=== PATIENT | male | born 1950 | race African-American/Black ===

== ENCOUNTER 2017-05-23 13:11 | Emergency (ER) | payer MEDICARE, OTHER ==
--- NOTE | 2017-05-23 14:20 | ER Document Report ---
ED Psych Disorder / Suicide - General Chief Complaint: Psych Problem Stated Complaint: PSYCH EVAL Time Seen by Provider: 05/23/17 14:14 Notes: Patient is a 66 year old male presenting to the emergency department with IVC paperwork. Patient was placed under IVC for being violent and throwing things in his facility of living. Patient state he is having difficulty making adjustments. Patient has not had a shower in about a month. Patient was brought in by a deputy court. Patient states he was having some problems so he was brought in. Patient states he kicked over a fan and was using profanity. Patient resides at [facility]. Patient states he is at [facility] because of EtOH and drugs. Patient denies any current pain. TRAVEL OUTSIDE OF THE [place] IN LAST 30 DAYS: No - Related Data Allergies/Adverse Reactions: aspirin [Aspirin] Allergy (Mild, Verified 05/23/17 13:16) Penicillins Allergy (Mild, Verified 05/23/17 13:16) Past Medical History - Social History Family History: DM - Past Medical History Cardiac Medical History: Reports: Hx Hypercholesterolemia, Hx Hypertension Denies: Hx Coronary Artery Disease, Hx Heart Attack Pulmonary Medical History: Reports: Hx Pneumonia - 5 YEARS AGO Denies: Hx Asthma, Hx COPD Neurological Medical History: Denies: Hx Cerebrovascular Accident, Hx Seizures Endocrine Medical History: Reports: Hx Diabetes Mellitus Type 2 Renal/ Medical History: Denies: Hx Peritoneal Dialysis Musculoskeltal Medical History: Denies Hx Arthritis Psychiatric Medical History: Reports: Hx Schizophrenia Past Surgical History: Reports: Hx Orthopedic Surgery - left foot. Denies: Hx Pacemaker - Immunizations Hx Diphtheria, Pertussis, Tetanus Vaccination: Yes Physical Exam - Vital signs Vitals: Temp Pulse Resp BP Pulse Ox 98.2 F 121 H 20 168/105 H 99 05/23/17 13:19 05/23/17 13:19 05/23/17 13:19 05/23/17 13:19 05/23/17 13:19 - Notes Notes: Mild tachycardia. Course - Vital Signs Vital signs: Temp Pulse Resp BP Pulse Ox 98.2 F 121 H 20 168/105 H 99 05/23/17 13:19 05/23/17 13:19 05/23/17 13:19 05/23/17 13:19 05/23/17 13:19 Scribe Documentation - Scribe Written by Scribe:: Mark Guillen 05/23/17 14:20 acting as scribe for :: Deena
--- NOTE | 2017-05-23 15:01 | ER Document Report ---
ED Psych Disorder / Suicide <BALTAZAR PIERRE - Last Filed: 05/23/17 17:44> - General Information source: Patient, Transfer Record TRAVEL OUTSIDE OF THE [place] IN LAST 30 DAYS: No <BRUCE MADRIGAL - Last Filed: 05/23/17 19:40> - General Chief Complaint: Psych Problem Stated Complaint: PSYCH EVAL Time Seen by Provider: 05/23/17 14:14 - HPI Notes: Patient states he is not suicidal or homicidal. Patient disclosed he can't make adjustments the way people feel he should. Patient disclosed he has been under a lot of pressure. Patient stated again he has no desire to hurt himself or others. Patient disclosed he saw something that upset up but would not elaborate. There is no family or friends. Patient states he has been living in a rest home for 15 years. Patient is alert and orientated to person, place and circumstance. Mood is euthymic however does demonstrate some agitation when talking about the "something" he witnessed. Patient denies suicidal and homicidal ideation. No current delusions are noted. Patient is not demonstrating any behaviour congruent with responding to internal stimuli. thought process is organized and linear. Thought content is guarded. Conversational speech is slightly pressured. attention and concentration are fair. intellectual abilities appear to be average range. eye contact is good. schizophrenia per history impression/plan: patient is recommended for rescind of IVC, patient does not meet IVC criteria per [place] GS 122C. Concerns for patent include not taking medication and aggression. Patient has not had any behavioral issues during [facility] ED visit. Patient appears to be having difficulties with his placement and wants a new arrangement. Patient is recommended to follow up with out patient mental health services to address reported history. Patient is currently not in an acute psychosis and is already engaged in a higher level of care with [facility]. Dr. Guy was consulted on the care and management of this patient; attending physician is in agreement with recommendations and disposition. (BALTAZAR PIERRE) Patient is a 66-year-old male who presents with the following RME complaint "Patient is a 66 year old male presenting to the emergency department with IVC paperwork. Patient was placed under IVC for being violent and throwing things in his facility of living. Patient state he is having difficulty making adjustments. Patient has not had a shower in about a month. Patient was brought in by a deputy sheriff k9 handler. Patient states he was having some problems so he was brought in. Patient states he kicked over a fan and was using profanity. Patient resides at [facility]. Patient states he is at [facility] because of EtOH and drugs. Patient denies any current pain." Patient will not give me any further history except reporting he is having problems with other residents that he is dealing with at his current facility, [facility]. He reports distant marijuana and alcohol use denies any current problems. He has refused to shave for the last 3 weeks he states because "some people just want it there way". History is otherwise as per IVC papers which show him as being aggressive and threatening including asking for a gun. Denies any active physical complaints at all. Does report a distant history of blood clot in his foot that required surgery. Denies diabetes but was fairly upset that a physician tried to treat him for this in the past. (BRUCE MADRIGAL) - Related Data Allergies/Adverse Reactions: aspirin [Aspirin] Allergy (Mild, Verified 05/23/17 13:16) Penicillins Allergy (Mild, Verified 05/23/17 13:16) Past Medical History - Social History Smoking Status: Former Smoker Chew tobacco use (# tins/day): No Frequency of alcohol use: None Drug Abuse: None Family History: Reviewed & Not Pertinent, DM - Past Medical History Cardiac Medical History: Reports: Hx Hypercholesterolemia, Hx Hypertension Denies: Hx Coronary Artery Disease, Hx Heart Attack Pulmonary Medical History: Reports: Hx Pneumonia - 5 YEARS AGO Denies: Hx Asthma, Hx COPD Neurological Medical History: Denies: Hx Cerebrovascular Accident, Hx Seizures Endocrine Medical History: Reports: Hx Diabetes Mellitus Type 2 Renal/ Medical History: Denies: Hx Peritoneal Dialysis Musculoskeltal Medical History: Denies Hx Arthritis Psychiatric Medical History: Reports: Hx Schizophrenia Past Surgical History: Reports: Hx Orthopedic Surgery - left foot. Denies: Hx Pacemaker - Immunizations Hx Diphtheria, Pertussis, Tetanus Vaccination: Yes <BRUCE MADRIGAL - Last Filed: 05/23/17 19:40> Review of Systems - Review of Systems -: Yes ROS unobtainable due to patient's medical condition - Refuses to give further answers. <BRUCE MADRIGAL - Last Filed: 05/23/17 19:40> Physical Exam <BALTAZAR PIERRE - Last Filed: 05/23/17 17:44> - Vital signs Interpretation: Hypertensive <BRUCE MADRIGAL - Last Filed: 05/23/17 19:40> - Vital signs Vitals: Temp Pulse Resp BP Pulse Ox 98.2 F 121 H 20 168/105 H 99 05/23/17 13:19 05/23/17 13:19 05/23/17 13:19 05/23/17 13:19 05/23/17 13:19 - Notes Notes: GENERAL: VS as per nursing doc. Well-appearing, well-nourished and in no acute distress. HEAD: Atraumatic, normocephalic EYES: Pupils equal round and reactive to light, extraocular movements intact, sclera anicteric, no conjunctival injection or discharge. ENT: Nares patent, oropharynx clear without exudates, moist mucous membranes. NECK: Normal range of motion, supple without lymphadenopathy. LUNGS: Breath sounds clear to auscultation bilaterally and equal. No wheezes rales or rhonchi. HEART: Regular rate and rhythm without murmurs. Peripheral pulses equal. ABDOMEN: Soft, non-tender. BACK: Normal to inspection EXTREMITIES: Normal appearance without edema. NEUROLOGICAL: Cranial nerves grossly intact. Normal speech. Normal sensory and motor exams. No gross cerebellar abnormalities. PSYCH: Oriented 3. Calm, directable. No evidence of hallucinations or delusions. No reported suicidal or homicidal ideation. Normal thought content. Good insight. Speech is appropriate. SKIN: Warm, dry. No lacerations. (KAITLIN,JOHN F) Course - Laboratory Result Diagrams: 05/23/17 15:16 05/23/17 15:16 <PIERREBALTAZAR - Last Filed: 05/23/17 17:44> - Laboratory Result Diagrams: 05/23/17 15:16 05/23/17 15:16 - EKG Interpretation by Ga Rate: Tachycardia - Rate 105. Left atrial enlargement noted. LVH with repolarization abnormalities. Nonspecific ST-T abnormalities otherwise noted. Impression abnormal <BRUCE MADRIGAL - Last Filed: 05/23/17 19:40> - Re-evaluation Re-evalutation: 05/23/17 19:39 Patient was seen by psychiatry. They did not feel he met commitment criteria. They are going to work on things as an outpatient. Patient reports no homicidal or suicidal ideation. (BRUCE MADRIGAL) - Vital Signs Vital signs: Temp Pulse Resp BP Pulse Ox 98.2 F 121 H 20 168/105 H 99 05/23/17 13:19 05/23/17 13:19 05/23/17 13:19 05/23/17 13:19 05/23/17 13:19 - Laboratory Laboratory results interpreted by me: 05/23/17 05/23/17 05/23/17 15:16 15:16 15:45 Hgb 12.4 L RDW 14.5 H Potassium 3.3 L BUN 43 H Creatinine 4.83 H Est GFR ( Amer) 15 L Est GFR (Non-Af Amer) 12 L Glucose 184 H AST 13 L Alkaline Phosphatase 161 H Total Protein 8.4 H Urine Protein 100 H Urine Glucose (UA) >=500 H Urine Blood SMALL H Salicylates < 1.0 L Acetaminophen < 10 L Discharge <BALTAZAR PIERRE - Last Filed: 05/23/17 17:44> <BRUCE MADRIGAL - Last Filed: 05/23/17 19:40> - Discharge Clinical Impression: behavorial event Condition: Stable Disposition: HOME, SELF-CARE Additional Instructions: AT ANY TIME, IF YOUR SYMPTOMS CHANGE SIGNIFICANTLY OR WORSEN OR YOU DEVELOP NEW SYMPTOMS, RETURN TO THE EMERGENCY DEPARTMENT IMMEDIATELY FOR RE-EVALUATION. OUR GOAL IS TO PROVIDE EXCELLENT MEDICAL CARE! WE HOPE THAT WE HAVE MET YOUR EXPECTATIONS DURING YOUR EMERGENCY DEPARTMENT VISIT AND THAT YOU FEEL YOU HAVE RECEIVED EXCELLENT CARE! Please follow up with your out patient mental health provider within 3-5 days.
[2017-05-23 15:33] LABS: ABSOLUTE BASOPHILS # (AUTO) 0.1 10^3/uL (0.0-0.2); ABSOLUTE EOSINOPHILS # (AUTO) 0.1 10^3/uL (0.0-0.6); ABSOLUTE LYMPHOCYTES (AUTO) 1.5 10^3/uL (0.5-4.7); ABSOLUTE MONOCYTES (AUTO) 0.5 10^3/uL (0.1-1.4); ABSOLUTE NEUT (AUTO) 4.2 10^3/uL (1.7-8.2); EOSINOPHILS % (AUTO) 1.1 % (0-6); HEMOGLOBIN 12.4 g/dL (13.5-17.0); HGB HCT DIFFERENCE -0.8; LYMPHOCYTES % (AUTO) 23.2 % (13-45); MEAN CORPUSCULAR HEMOGLOBIN 27.8 pg (27.0-33.4); MEAN CORPUSCULAR HGB CONC 32.7 g/dL (32.0-36.0); MEAN CORPUSCULAR VOLUME 85 fl (80-97); MONOCYTES % (AUTO) 8.1 % (3-13); RED BLOOD COUNT 4.47 10^6/uL (4.35-5.55); RED CELL DISTRIBUTION WIDTH 14.5 % (11.5-14.0); SEGMENTED NEUTROPHILS % (AUTO) 66.6 % (42-78); WHITE BLOOD COUNT 6.3 10^3/uL (4.0-10.5)
--- NOTE | 2017-05-23 15:35 | ER Document Report ---
ED Medical Screen (RME) - General TRAVEL OUTSIDE OF THE U.[place] IN LAST 30 DAYS: No <ASAD HUI - Last Filed: 05/23/17 15:36> <CARLOS HANNA - Last Filed: 05/23/17 21:21> - General Chief Complaint: Psych Problem Stated Complaint: PSYCH EVAL Time Seen by Provider: 05/23/17 14:14 Notes: Patient is a 66 year old male presenting to the emergency department with IVC paperwork. Patient was placed under IVC by Vickie Mcclain (director of [facility]) for being violent, threatening staff, using profanity, and throwing things in his facility of living. Patient states he is having difficulty making adjustments. Patient states has not had a shower in about a month. Patient was brought in to the ED by a sheriff. Patient states he was having some problems so he was brought in. Patient states he kicked over a fan, threw his walker, and was using profanity. Patient resides at [facility]. Patient states he is at [facility] because of EtOH and drugs. Patient is not currently using any drugs or EtOH. Patient denies any current pain. (ASAD HUI) - Related Data Allergies/Adverse Reactions: aspirin [Aspirin] Allergy (Mild, Verified 05/23/17 13:16) Penicillins Allergy (Mild, Verified 05/23/17 13:16) Past Medical History - Social History Chew tobacco use (# tins/day): No Frequency of alcohol use: None Drug Abuse: None - Past Medical History Cardiac Medical History: Reports: Hx Hypercholesterolemia, Hx Hypertension Denies: Hx Coronary Artery Disease, Hx Heart Attack Pulmonary Medical History: Reports: Hx Pneumonia - 5 YEARS AGO Denies: Hx Asthma, Hx COPD Neurological Medical History: Denies: Hx Cerebrovascular Accident, Hx Seizures Endocrine Medical History: Reports: Hx Diabetes Mellitus Type 2 Renal/ Medical History: Denies: Hx Peritoneal Dialysis Musculoskeltal Medical History: Denies Hx Arthritis Psychiatric Medical History: Reports: Hx Schizophrenia Past Surgical History: Reports: Hx Orthopedic Surgery - left foot. Denies: Hx Pacemaker - Immunizations Hx Diphtheria, Pertussis, Tetanus Vaccination: Yes <ASAD HUI - Last Filed: 05/23/17 15:36> Physical Exam <ASAD HUI - Last Filed: 05/23/17 15:36> <CARLOS HANNA - Last Filed: 05/23/17 21:21> - Vital signs Vitals: Temp Pulse Resp BP Pulse Ox 98.2 F 121 H 20 168/105 H 99 05/23/17 13:19 05/23/17 13:19 05/23/17 13:19 05/23/17 13:19 05/23/17 13:19 - Notes Notes: GENERAL: Alert, interacts well. No acute distress. LUNGS: Clear to auscultation bilaterally, no wheezes, rales, or rhonchi. No respiratory distress. HEART: Mild tachycardia. Regular rhythm. No murmurs, gallops, or rubs. (ASAD HUI) Course - Laboratory Result Diagrams: 05/23/17 15:16 05/23/17 15:16 <ASAD HUI - Last Filed: 05/23/17 15:36> - Laboratory Result Diagrams: 05/23/17 15:16 05/23/17 15:16 <CARLOS HANNA - Last Filed: 05/23/17 21:21> - Vital Signs Vital signs: Temp Pulse Resp BP Pulse Ox 98.2 F 121 H 20 168/105 H 99 05/23/17 13:19 05/23/17 13:19 05/23/17 13:19 05/23/17 13:19 05/23/17 13:19 - Laboratory Laboratory results interpreted by me: 05/23/17 05/23/17 05/23/17 15:16 15:16 15:45 Hgb 12.4 L RDW 14.5 H Potassium 3.3 L BUN 43 H Creatinine 4.83 H Est GFR ( Amer) 15 L Est GFR (Non-Af Amer) 12 L Glucose 184 H AST 13 L Alkaline Phosphatase 161 H Total Protein 8.4 H Urine Protein 100 H Urine Glucose (UA) >=500 H Urine Blood SMALL H Salicylates < 1.0 L Acetaminophen < 10 L Doctor's Discharge <ASAD HUI - Last Filed: 05/23/17 15:36> <CARLOS HANNA - Last Filed: 05/23/17 21:21> - Discharge Clinical Impression: behavorial event Condition: Stable Disposition: HOME, SELF-CARE Additional Instructions: AT ANY TIME, IF YOUR SYMPTOMS CHANGE SIGNIFICANTLY OR WORSEN OR YOU DEVELOP NEW SYMPTOMS, RETURN TO THE EMERGENCY DEPARTMENT IMMEDIATELY FOR RE-EVALUATION. OUR GOAL IS TO PROVIDE EXCELLENT MEDICAL CARE! WE HOPE THAT WE HAVE MET YOUR EXPECTATIONS DURING YOUR EMERGENCY DEPARTMENT VISIT AND THAT YOU FEEL YOU HAVE RECEIVED EXCELLENT CARE! Please follow up with your out patient mental health provider within 3-5 days. Scribe Documentation - Scribe Written by Mark:: Mark Guillen 05/23/17 15:34 acting as scribe for :: Deena <ASAD HUI - Last Filed: 05/23/17 15:36>
[2017-05-23 15:48] LABS: ALANINE AMINOTRANSFERASE 24 U/L (21-72); ALBUMIN 4.7 g/dL (3.5-5.0); ALKALINE PHOSPHATASE 161 U/L (38-126); ANION GAP 19 (5-19); ASPARTATE AMINO TRANSFERASE 13 U/L (17-59); BILIRUBIN,DIRECT 0.4 mg/dL (0.0-0.4); BILIRUBIN,TOTAL 0.4 mg/dL (0.2-1.3); BLOOD UREA NITROGEN 43 mg/dL (7-20); CARBON DIOXIDE 22 mmol/L (22-30); CHLORIDE 103 mmol/L (98-107); CREATININE RESULT 4.83 mg/dL (0.52-1.25); GLUCOSE 184 mg/dL (75-110); POTASSIUM 3.3 mmol/L (3.6-5.0); SODIUM 143.9 mmol/L (137-145); TOTAL PROTEIN 8.4 g/dL (6.3-8.2)
[2017-05-23 15:49] LABS: ALCOHOL < 10 mg/dL (NONE DETECTED)
[2017-05-23 16:35] LABS: APPEARANCE,URINE CLOUDY; BILIRUBIN,URINE NEGATIVE (NEGATIVE); GLUCOSE, URINE >=500 mg/dL (NEGATIVE); KETONES,URINE NEGATIVE (NEGATIVE); LEUKOCYTE ESTERASE,URINE NEGATIVE (NEGATIVE); NITRITE,URINE NEGATIVE (NEGATIVE); PROTEIN,URINE 100 mg/dL (NEGATIVE); URINE SPECIFIC GRAVITY 1.007; UROBILINOGEN,URINE NEGATIVE mg/dL (<2.0)
[2017-05-23 16:51] LABS: URINE BARBITURATES SCREEN NEGATIVE; URINE METHADONE SCREEN NEGATIVE; URINE OPIATES LOW NEGATIVE; URINE PHENCYCLIDINE SCREEN NEGATIVE
[2017-05-23 21:55] VITALS: BP 159/91
--- NOTE | 2017-05-25 13:49 | EKG REPORT ---
SEVERITY:- ABNORMAL ECG - SINUS TACHYCARDIA LEFT ATRIAL ABNORMALITY LVH WITH SECONDARY REPOLARIZATION ABNORMALITY ST DEPRESSION, CONSIDER ISCHEMIA, ANT-LAT LDS : Confirmed by: rBie Wetzel MD 25-May-2017 13:48:27
== END 2017-05-23 19:00 | disposition home or self-care (01) ==
LOC: ER 13:11
DX: F91.8 Other conduct disorders (principal); F20.9 Schizophrenia, unspecified; E78.00 Pure hypercholesterolemia, unspecified; I10 Essential (primary) hypertension; E11.9 Type 2 diabetes mellitus without complications; Z88.6 Allergy status to analgesic agent; Z88.0 Allergy status to penicillin
CPT/HCPCS: 36415; 80053; 80307; 81001; 85025; 93005; 93010; 99284

== ENCOUNTER 2017-09-15 21:32 | Inpatient (IN) | payer MEDICARE, MEDICAID ==
--- NOTE | 2017-09-15 23:07 | ER Document Report ---
ED General - General Chief Complaint: Psych Problem Stated Complaint: PSYCH EVAL Time Seen by Provider: 09/15/17 21:57 Cannot obtain history due to: Mentally challenged, Uncooperative Notes: Patient is a 67-year-old male with a known psychiatric history who presents on involuntary commitment paperwork from his facility apparently for refusing to take medications and being aggressive with staff. The patient himself does not provide any meaningful history, denies any acute complaints, states he does not know why he is here. TRAVEL OUTSIDE OF THE [place] IN LAST 30 DAYS: No - Related Data Allergies/Adverse Reactions: aspirin [Aspirin] Allergy (Mild, Verified 05/23/17 13:16) Penicillins Allergy (Mild, Verified 05/23/17 13:16) Past Medical History - General Information source: Patient Cannot obtain history due to: Mentally challenged, Uncooperative - Social History Smoking Status: Former Smoker Frequency of alcohol use: None Drug Abuse: None Lives with: Retirement Family History: Reviewed & Not Pertinent, DM - Past Medical History Cardiac Medical History: Reports: Hx Hypercholesterolemia, Hx Hypertension Denies: Hx Coronary Artery Disease, Hx Heart Attack Pulmonary Medical History: Reports: Hx Pneumonia - 5 YEARS AGO Denies: Hx Asthma, Hx COPD Neurological Medical History: Denies: Hx Cerebrovascular Accident, Hx Seizures Endocrine Medical History: Reports: Hx Diabetes Mellitus Type 2 Renal/ Medical History: Denies: Hx Peritoneal Dialysis Musculoskeltal Medical History: Denies Hx Arthritis Psychiatric Medical History: Reports: Hx Schizophrenia Past Surgical History: Reports: Hx Orthopedic Surgery - left foot. Denies: Hx Pacemaker - Immunizations Hx Diphtheria, Pertussis, Tetanus Vaccination: Yes Review of Systems - Review of Systems Notes: Constitutional: Negative for fever. HENT: Negative for sore throat. Eyes: Negative for visual changes. Cardiovascular: Negative for chest pain. Respiratory: Negative for shortness of breath. Gastrointestinal: Negative for abdominal pain, vomiting or diarrhea. Genitourinary: Negative for dysuria. Musculoskeletal: Negative for back pain. Skin: Negative for rash. Neurological: Negative for headaches, weakness or numbness. 10 point ROS negative except as marked above and in HPI. Physical Exam - Vital signs Vitals: Temp Pulse Resp BP Pulse Ox 98.5 F 108 H 17 176/92 H 99 09/15/17 21:57 09/15/17 21:57 09/15/17 21:57 09/15/17 21:57 09/15/17 21:57 Interpretation: Hypertensive Notes: PHYSICAL EXAMINATION: GENERAL: Well-appearing, well-nourished and in no acute distress. HEAD: Atraumatic, normocephalic. EYES: Pupils equal round and reactive to light, extraocular movements intact, sclera anicteric, conjunctiva are normal. ENT: nares patent, oropharynx clear without exudates. Moist mucous membranes. NECK: Normal range of motion, supple without lymphadenopathy LUNGS: Breath sounds clear to auscultation bilaterally and equal. No wheezes rales or rhonchi. HEART: Regular rate and rhythm without murmurs ABDOMEN: Soft, nontender, normoactive bowel sounds. No guarding, no rebound. No masses appreciated. EXTREMITIES: Normal range of motion, no pitting or edema. No cyanosis. NEUROLOGICAL: No focal neurological deficits. Moves all extremities spontaneously and on command. PSYCH: Poor eye contact, somewhat bizarre affect. Does not provide meaningful history SKIN: Warm, Dry, normal turgor, no rashes or lesions noted. Course - Re-evaluation Re-evalutation: 09/15/17 23:05 Patient presents on involuntary commitment paperwork apparently after demonstrating physical hostility and aggression towards members of staff at the facility where he resides. He is calm and cooperative here. He does not provide any meaningful history. When I asked him what is going on he states "the cat went with a dog, the chicken went with the duck, and my left me for a homosexual". I am uncertain of the contacts and under which the patient came to this emergency department although he does not appear to be an immediate threat to himself or others. However given IVC was filled out by individuals who witnessed the events, I will proceed with standard psychiatric screening laboratories and have psychiatry evaluate the patient in the morning. He denies any acute physical concerns and a medical screening exam is unremarkable. 09/16/17 03:01 Labs are unchanged from patient's best baseline showing chronic kidney disease. Otherwise unremarkable. He is cleared for psychiatric evaluation - Vital Signs Vital signs: Temp Pulse Resp BP Pulse Ox 98.5 F 108 H 17 176/92 H 99 09/15/17 21:57 09/15/17 21:57 09/15/17 21:57 09/15/17 21:57 09/15/17 21:57 - Laboratory Result Diagrams: 09/16/17 00:15 09/16/17 00:15 Laboratory results interpreted by me: 09/16/17 09/16/17 00:15 00:15 Hgb 12.8 L Hct 37.6 L RDW 14.3 H Potassium 3.5 L Carbon Dioxide 21 L BUN 46 H Creatinine 5.87 H Est GFR ( Amer) 12 L Est GFR (Non-Af Amer) 10 L Glucose 128 H Direct Bilirubin 0.7 H Alkaline Phosphatase 154 H Salicylates < 1.0 L Acetaminophen < 10 L Discharge - Discharge Clinical Impression: Agitation, Refusal of medication Condition: Fair Disposition: PSYCH HOSP/UNIT
[2017-09-16 00:34] LABS: ABSOLUTE BASOPHILS # (AUTO) 0.1 10^3/uL (0.0-0.2); ABSOLUTE LYMPHOCYTES (AUTO) 1.8 10^3/uL (0.5-4.7); ABSOLUTE MONOCYTES (AUTO) 0.8 10^3/uL (0.1-1.4); ABSOLUTE NEUT (AUTO) 5.6 10^3/uL (1.7-8.2); BASOPHILS % (AUTO) 1.1 % (0-2); EOSINOPHILS % (AUTO) 0.4 % (0-6); HEMATOCRIT 37.6 % (37.9-51.0); HEMOGLOBIN 12.8 g/dL (13.5-17.0); HGB HCT DIFFERENCE 0.8; LYMPHOCYTES % (AUTO) 21.4 % (13-45); MEAN CORPUSCULAR HEMOGLOBIN 28.3 pg (27.0-33.4); MEAN CORPUSCULAR HGB CONC 34.1 g/dL (32.0-36.0); MEAN CORPUSCULAR VOLUME 83 fl (80-97); MONOCYTES % (AUTO) 9.5 % (3-13); RED BLOOD COUNT 4.54 10^6/uL (4.35-5.55); RED CELL DISTRIBUTION WIDTH 14.3 % (11.5-14.0); SEGMENTED NEUTROPHILS % (AUTO) 67.6 % (42-78); WHITE BLOOD COUNT 8.3 10^3/uL (4.0-10.5)
[2017-09-16 00:44] LABS: ALANINE AMINOTRANSFERASE 37 U/L (21-72); ALBUMIN 4.1 g/dL (3.5-5.0); ALKALINE PHOSPHATASE 154 U/L (38-126); ANION GAP 15 (5-19); ASPARTATE AMINO TRANSFERASE 51 U/L (17-59); BILIRUBIN,DIRECT 0.7 mg/dL (0.0-0.4); BILIRUBIN,TOTAL 0.7 mg/dL (0.2-1.3); BLOOD UREA NITROGEN 46 mg/dL (7-20); CALCIUM 8.8 mg/dL (8.4-10.2); CARBON DIOXIDE 21 mmol/L (22-30); CHLORIDE 107 mmol/L (98-107); CREATININE RESULT 5.87 mg/dL (0.52-1.25); GLUCOSE 128 mg/dL (75-110); POTASSIUM 3.5 mmol/L (3.6-5.0); SODIUM 143.2 mmol/L (137-145); TOTAL PROTEIN 7.2 g/dL (6.3-8.2)
[2017-09-16 00:46] LABS: ALCOHOL < 10 mg/dL (NONE DETECTED)
--- NOTE | 2017-09-16 08:08 | PSYCHOLOGICAL NOTE ---
Psych Note - Psych Note Psych Note: Patient is a 67-year-old male who presented last night via [facility] 's department under an involuntary commitment petition. Patient is a resident at [facility] who petitioned the involuntary commitment due to allegedly aggressive outbursts. The person who signed the petition listed herself as a med tech. Patient has a known diagnosis history of schizophrenia. Patient today is laying on his bed and does not make eye contact. Patient is mostly disorganized with his thoughts; however, there is a common theme with each of his answers in stories which is he has been upset because he cannot swallow the food. Patient states this has been going on for about a month. Patient does deny wanting to by suicide and denies wanting to harm others. Discussion with patient was otherwise limited and he is considered a poor historian at this time. No med recs or other information accompanied the patient last night from the facility. Note, patient was seen May 23, 2017 for a similar episode/etiology. [facility], [phone]: called x2, no answering service/unable to leave message. Third call, spoke with Gilda Mcqueen Gimp Tacker states patient has been a resident since December 18, 2001. Patient is his own guardian. Employee states the patient has been having similar episodes of outbursts throughout his stay. Patient has denied that he is diabetic his entire residence (employee has worked there for 10 years). She states for several months the patient has refused all medications, to include medical and psychiatric and to also see his psychiatrist. Worker states his sister had to come to take him to the doctor the other day. He typically refuses baths, etc. She states the State has visited, as well as APS and there is no place for him to go because he refuses his Diabetes medications. She states for the past few days, patient has been acting out aggressively, to include kicking items over, cursing, and then yesterday at breakfast and lunch began throwing cups of water at staff. Yesterday afternoon, he reportedly threw a table. She states the patient refuses help with ADL's, but then states no one helps him. Employee states that the patient cannot come back until he agreed to take his medications and be compliant. She states there policy is that if a resident was aggressive towards others, he can be refused. Discussed with employee that the patient is his own guardian, and has the right to refuse his medications. Worker states she is most concerned with the diabetes due to patient complaining of diminished eye sight. She states because she has been there for 10 years, the patient generally comes directly to her and has not complained about inability to swallow. She denies that the patient has been assessed by neurology for dementia related concerns. Patient was alert and oriented to name, location and year. Mood was euthymic with normal affect. Patient denies suicidal/homicidal ideations, intent, plan, means. Patient denies A/VH. Thought processes were disorganized. Conversational speech was disorganized. Intellectual abilities were estimated within the lower functioning range. Attention and focus are poor. Insight, judgment, impulse control are poor. 298.9 (F 29) unspecified schizophrenia spectrum and other psychotic disorder Diabetes Patient is recommended to continue under involuntary commitment for further observation and stabilization. I consulted with Dr. Guy in regards to the care management of this patient. EDMD is in agreement with disposition and recommendations.
--- NOTE | 2017-09-16 09:56 | ER Document Report ---
Doctor's Note Notes: 09/16/17 09:55 Rounds: Chart reviewed and patient interviewed. Patient resides at [facility]. He is been refusing to take his medications. His behavior became aggressive. He says that he is living there for 15 years and has issues causing him to act out now. Vital signs are essentially normal. Heart rate 101. Lab studies show some renal insufficiency which appears to be chronic. Patient appears to be medically stable for transfer or discharge. Alexandra Fernandez MD
[2017-09-16] MEDS ORDERED: CLONIDINE 0.1 MG/24 HR PATCH.TDWK TD ONE (10:13)
[2017-09-16] MEDS ORDERED: DIVALPROEX SODIUM 125 MG CAP.SPRINK PO SCH (10:15)
[2017-09-16] MEDS ORDERED: DIVALPROEX SODIUM 125 MG CAP.SPRINK PO ONE ×2 (11:00→12:00)
[2017-09-16] MEDS ORDERED: LORAZEPAM INJ 2 MG/1 ML VIAL IM ONE ×2 (11:56→13:00)
[2017-09-16] MEDS ORDERED: LORAZEPAM INJ 2 MG/1 ML VIAL IM SCH (12:00)
--- NOTE | 2017-09-16 15:33 | EKG REPORT ---
SEVERITY:- ABNORMAL ECG - SINUS TACHYCARDIA VENTRICULAR PREMATURE COMPLEX LEFT ATRIAL ABNORMALITY PROBABLE LVH WITH SECONDARY REPOL ABNRM ANTERIOR Q WAVES, POSSIBLY DUE TO LVH VS ANTERIOR SD AGE INDETERMINATE : Confirmed by: Shukri Bragg 16-Sep-2017 15:32:32
[2017-09-16] MEDS: DIVALPROEX SODIUM 125 MG CAP.SPRINK PO SCH (22:49)
[2017-09-16] MEDS: LORAZEPAM INJ 2 MG/1 ML VIAL IM SCH (22:49)
--- NOTE | 2017-09-17 10:12 | ER Document Report ---
Doctor's Note Notes: Patient is 67 year old male presenting to the emergency department via [facility] Department for aggressive behavior. Patient currently resides at [facility] where he was becoming aggressive. At bedside patient states that he expects people to already know things. Patient states that for the past week if felt like something was "bothering him" in his throat. He states that he continues to choke on his food. Patient states that he would like a shower and a shave. GENERAL: Alert, interacts well. No acute distress. HEAD: Normocephalic, atraumatic. EYES: Pupils equal, round, and reactive to light. Extraocular movements intact. ENT: Oral mucosa moist, tongue midline. ] NECK: Full range of motion. Supple. Trachea midline. LUNGS: Clear to auscultation bilaterally, no wheezes, rales, or rhonchi. No respiratory distress. HEART: Regular rate and rhythm. No murmurs, gallops, or rubs. ABDOMEN: Soft, non-tender. Non-distended. Bowel sounds present in all 4 quadrants. EXTREMITIES: Moves all 4 extremities spontaneously. NEUROLOGICAL: Alert and oriented x3. Normal speech. PSYCH: Normal affect, normal mood. SKIN: Warm, dry, normal turgor. No rashes or lesions noted. 09/17/17 15:48 (SELINA YUAN) 09/17/17 19:44 No evidence of difficulty swallowing, partially eaten breakfast tray by the bedside, no difficulty handling his secretions. nutrition services assistant consult has been made as there is some difficulty with [facility] getting them to agree to allow this patient to return. Continues to be medically stable. ( CARLOS HANNA)
[2017-09-17] MEDS: DIVALPROEX SODIUM 125 MG CAP.SPRINK PO SCH ×2 (11:10→23:30)
[2017-09-17] MEDS: LORAZEPAM INJ 2 MG/1 ML VIAL IM SCH ×2 (11:15→23:30)
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
--- NOTE | 2017-09-18 10:15 | PSYCHOLOGICAL NOTE ---
Psych Note - Psych Note Psych Note: Conducted check in with patient is a 67-year-old male who presented last night via [facility]'s department under an involuntary commitment petition. Patient is a resident at [facility] who petitioned the involuntary commitment due to allegedly aggressive outbursts. Patient today appears calm and stated "feel some better." He then stated to clinician that he needed a shave. Chart review conducted; patient is noted to have refused his evening medications because his Depakote sprinkles were put in ice cream. Patient asked attending nurse why he was receiving ice cream in the middle of the evening and then refused to take his medicine. Patient was alert and oriented to name, location and year. Mood was euthymic with normal affect. Patient denies suicidal/homicidal ideations, intent, plan, means. Patient denies A/VH. Thought processes were disorganized. Conversational speech was disorganized. Intellectual abilities were estimated within the lower functioning range. Attention and focus are poor. Insight, judgment, impulse control are poor. 298.9 (F 29) unspecified schizophrenia spectrum and other psychotic disorder Diabetes Patient is recommended to continue under involuntary commitment for further observation and stabilization. Patient is unable to return to his assisted living home and less he is taking p.o. medications as prescribed. Patient is currently refusing medications and any attempt to provide his medications and food. I consulted with Dr. Guy in regards to the care management of this patient. EDOH is in agreement with disposition and recommendations.
[2017-09-18] MEDS: LORAZEPAM INJ 2 MG/1 ML VIAL IM SCH (10:41)
[2017-09-18] MEDS: DIVALPROEX SODIUM 125 MG CAP.SPRINK PO SCH (10:43)
[2017-09-18] MEDS ORDERED: NORMAL SALINE 1000 ML 1,000 ML IV ONE (10:53)
[2017-09-18] MEDS ORDERED: CLONIDINE 0.2 MG/24 HR PATCH.TDWK TD SCH (11:00)
--- NOTE | 2017-09-18 11:08 | ER Document Report ---
Doctor's Note Notes: 09/18/17 11:06 67-year-old male who came to the [facility] with some increased agitation. Labs as recorded. It appears that the provider did think that this was a chronic condition. Patient did have a creatinine 4 months ago that was elevated in the fours. Previous creatinine prior to that was 2. I have called the [facility] facility and they have no record of any recent creatinines. BUN keeps increasing. Potassium is stable. I am concerned that the patient is having acute renal failure. I have tried to call all the patient's providers including the primary care physician Dr. Vivar. Patient is under IVC. Patient is refusing medications which I am concerned is contributing to his acute renal failure. I have added a urine sodium and will provide fluids. Psychiatry has been consulted on the patient and is attempting to have the patient take some liquid Depakote. I believe that the patient requires admission with gentle hydration even if it is against his wishes given that he is a danger to himself at this time.
[2017-09-18 12:24] LABS: ANION GAP 17 (5-19); BLOOD UREA NITROGEN 58 mg/dL (7-20); CALCIUM 8.6 mg/dL (8.4-10.2); CARBON DIOXIDE 23 mmol/L (22-30); CHLORIDE 105 mmol/L (98-107); CREATININE RESULT 6.25 mg/dL (0.52-1.25); GLUCOSE 161 mg/dL (75-110); POTASSIUM 3.2 mmol/L (3.6-5.0); SODIUM 145.1 mmol/L (137-145)
[2017-09-18] MEDS ORDERED: NORMAL SALINE 1000 ML 1,000 ML IV PRN (13:20)
[2017-09-18] MEDS ORDERED: ACETAMINOPHEN 325 MG TABLET PO PRN (13:20)
[2017-09-18] MEDS ORDERED: HALOPERIDOL LACTATE INJ 5 MG/1 ML VIAL IV PRN ×2 (13:37→15:18)
[2017-09-18] MEDS ORDERED: HALOPERIDOL LACTATE INJ 5 MG/1 ML VIAL IV ONE ×2 (14:30→16:00)
[2017-09-18 14:34] LABS: APPEARANCE,URINE SLIGHTLY-CLOUDY; BILIRUBIN,URINE NEGATIVE (NEGATIVE); GLUCOSE, URINE >=500 mg/dL (NEGATIVE); KETONES,URINE NEGATIVE (NEGATIVE); LEUKOCYTE ESTERASE,URINE NEGATIVE (NEGATIVE); NITRITE,URINE NEGATIVE (NEGATIVE); PROTEIN,URINE >=500 mg/dL (NEGATIVE); URINE SPECIFIC GRAVITY 1.011; UROBILINOGEN,URINE NEGATIVE mg/dL (<2.0)
--- NOTE | 2017-09-18 15:20 | PDOC H&P ---
History of Present Illness Admission Date/PCP: 09/18/17 11:31 Patient complains of: Agrressive behavior History of Present Illness: JYOTSNA CAMACHO is a 67 year old male presented with complaint of aggressive behavior toward staff. Pt was found to have a cr 5.87. ER called for admission for medical evaluation. Pt states that he is fine. Pt states that he is trying to go home. Pt states that he does not want us to do anything for him. Past Medical History Cardiac Medical History: Reports: Hyperlipidema, Hypertension Denies: Coronary Artery Disease, Myocardial Infarction Pulmonary Medical History: Reports: Pneumonia - 5 YEARS AGO Denies: Asthma, Chronic Obstructive Pulmonary Disease (COPD) Neurological Medical History: Denies: Seizures Endocrine Medical History: Reports: Diabetes Mellitus Type 2 Musculoskeltal Medical History: Denies: Arthritis Hematology: Denies: Anemia Past Surgical History Past Surgical History: Reports: Orthopedic Surgery - left foot Denies: Pacemaker Social History [facility] with: [facility] Smoking Status: Former Smoker Cigarettes Packs Per Day: 1 Cigars Per Day: 0 Pipes Per Day: 0 Number of Years Smokin Last Time Smoked: 11/03/2011 Frequency of Alcohol Use: None Hx Recreational Drug Use: No Hx Prescription Drug Abuse: No Family History Family History: Reviewed & Not Pertinent, DM Parental Family History Reviewed: Yes Children Family History Reviewed: Yes Sibling(s) Family History Reviewed.: Yes Medication/Allergy Home Medications: Acetaminophen [Acetaminophen Extra Strength] 500 mg PO Q8HP PRN 09/16/17 Amlodipine Besylate 5 mg PO DAILY 09/16/17 Atenolol/Chlorthalidone [Atenolol-Chlorthalidone 100-25] 1 tab PO DAILY Bismuth Subsalicylate [[place] Bismuth] 30 ml PO Q4HP PRN 09/16/17 Glipizide [Glipizide ER] 10 mg PO BID 09/16/17 Haloperidol 20 mg PO QHS 09/16/17 Losartan Potassium 100 mg PO DAILY 09/16/17 Mag Hydrox/Aluminum Hyd/Simeth [Antacid Anti-Gas Liquid] 15 ml PO Q4HP PRN 09/16 Simvastatin 10 mg PO QPM 09/16/17 Allergies/Adverse Reactions: aspirin [Aspirin] Allergy (Mild, Verified 09/18/17 13:06) Penicillins Allergy (Mild, Verified 09/18/17 13:06) Carbapenems Allergy (Verified 09/18/17 14:50) Cephalosporins Allergy (Verified 09/18/17 14:46) Review of Systems ROS unobtainable: Due to mental status Physical Exam Vital Signs: Temp Pulse Resp BP Pulse Ox 98.9 F 104 H 18 139/78 H 100 09/18/17 12:10 09/18/17 12:10 09/18/17 12:10 09/18/17 12:10 09/18/17 12:10 Intake & Output 09/17/17 09/18/17 09/19/17 06:59 06:59 06:59 Weight 62.1 kg General appearance: PRESENT: no acute distress, thin Head exam: PRESENT: atraumatic, normocephalic Eye exam: PRESENT: conjunctiva pink, EOMI, PERRLA. ABSENT: scleral icterus Ear exam: PRESENT: normal external ear exam Mouth exam: PRESENT: moist, tongue midline Neck exam: ABSENT: carotid bruit, JVD, lymphadenopathy, thyromegaly Respiratory exam: PRESENT: clear to auscultation dane. ABSENT: rales, rhonchi, wheezes Cardiovascular exam: PRESENT: RRR. ABSENT: diastolic murmur, rubs, systolic murmur Pulses: PRESENT: normal dorsalis pedis pul Vascular exam: PRESENT: normal capillary refill GI/Abdominal exam: PRESENT: normal bowel sounds, soft. ABSENT: distended, guarding, mass, organolmegaly, rebound, tenderness Rectal exam: PRESENT: deferred Extremities exam: PRESENT: full ROM. ABSENT: calf tenderness, clubbing, pedal edema Neurological exam: PRESENT: alert, awake, oriented to person, CN II-XII grossly intact Psychiatric exam: PRESENT: unusual affect Skin exam: PRESENT: dry, intact, warm. ABSENT: cyanosis, rash Results Laboratory Results: 09/18/17 11:36 09/18/17 09/18/17 11:36 14:05 Sodium 145.1 H Potassium 3.2 L Chloride 105 Carbon Dioxide 23 Anion Gap 17 BUN 58 H Creatinine 6.25 H Est GFR ( Amer) 11 L Est GFR (Non-Af Amer) 9 L Glucose 161 H Calcium 8.6 Urine Color YELLOW Urine Appearance SLIGHTLY-CLOUDY Urine pH 5.0 Ur Specific [place] 1.011 Urine Protein >=500 H Urine Glucose (UA) >=500 H Urine Ketones NEGATIVE Urine Blood MODERATE H Urine Nitrite NEGATIVE Ur Leukocyte Esterase NEGATIVE Urine WBC (Auto) 1 Urine RBC (Auto) 6 Assessment & Plan - Diagnosis (1) Schizophrenia Is this a current diagnosis for this admission?: Yes Plan: Will continue Depakote. Will add PRN Haldol. (2) Acute renal failure Qualifiers: Acute renal failure type: unspecified Qualified Code(s): N17.9 - Acute kidney failure, unspecified Is this a current diagnosis for this admission?: Yes Plan: In setting of CKD 2/3: Will check Renal u/s, UA with culture, bladder scan, and order to have navarrete placed if greater than 250 cc in bladder. (3) Moderate protein-calorie malnutrition Is this a current diagnosis for this admission?: Yes Plan: Will place on Renal diet and Nephro supplemental drink. (4) Hypernatremia Is this a current diagnosis for this admission?: Yes Plan: Will place on D51/2 NS. (5) Dehydration Is this a current diagnosis for this admission?: Yes Plan: Will place on IVF. Will check labs in am (6) Hypokalemia Is this a current diagnosis for this admission?: Yes Plan: Will check Potassium in am. Will give IVFs. (7) Metabolic acidosis Is this a current diagnosis for this admission?: Yes Plan: Secondary to Renal disease: Will continue IVFs. (8) DVT prophylaxis Is this a current diagnosis for this admission?: Yes Plan: SCDs - Time Time Spent: 30 to 50 Minutes Anticipated discharge: Other
[2017-09-18] MEDS ORDERED: DEXTROSE 50%-WATER 25 GM/50 ML DISP.SYRIN IV PRN ×2 (15:25)
[2017-09-18] MEDS ORDERED: GLUCAGON,HUMAN RECOMB 1 MG INJ IM PRN (15:25)
[2017-09-18] MEDS ORDERED: DEXTROSE 40% GEL 15 GM TUBE PO PRN ×2 (15:25)
[2017-09-18] MEDS ORDERED: INSULIN REG, HUMAN 100 UNIT/ML 3 ML VIAL (PYX) SUBCUT PRN (15:25)
[2017-09-18] MEDS ORDERED: LORAZEPAM INJ 2 MG/1 ML VIAL ONE ×2 (17:00→17:46)
[2017-09-18] MEDS ORDERED: LORAZEPAM INJ 2 MG/1 ML VIAL IV ONE (17:00)
[2017-09-18] MEDS: VALPROATE SODIUM SYRUP 250 MG/5 ML UDCUP PO SCH (17:38)
[2017-09-18] MEDS: DEXTROSE 5%-1/2 NORMAL SALINE 1,000 ML IV PRN (17:44)
--- NOTE | 2017-09-18 22:33 | RADIOLOGY REPORT (SQ) ---
EXAM DESCRIPTION: U/S RETROPERITON (RENAL/AORTA) COMPLETED DATE/TIME: 09/18/2017 10:16 pm REASON FOR STUDY: Acute Renal injury COMPARISON: None. TECHNIQUE: Dynamic and static grayscale images acquired of the kidneys and bladder and recorded on P ACS. Additional selected color Doppler and spectral images recorded. LIMITATIONS: None. FINDINGS: RIGHT KIDNEY: Normal size. Normal echogenicity. 2.6 cm cyst. No solid or suspicious mass es. No hydronephrosis. No calcifications. LEFT KIDNEY: Normal size. Normal echogenicity. 4.3 cm cyst. No solid or suspicious masses. No hydr onephrosis. No calcifications. BLADDER: Empty. Catheter in place. OTHER FINDINGS: No other significant finding. IMPRESSION: BILATERAL RENAL CYSTS. NO HYDRONEPHROSIS. TECHNICAL DOCUMENTATION: JOB ID: [id number] [employer]- All Rights Reserved
[2017-09-19] MEDS ORDERED: LORAZEPAM INJ 2 MG/1 ML VIAL IV ONE (09:46)
[2017-09-19 10:24] LABS: ANION GAP 15 (5-19); BLOOD UREA NITROGEN 53 mg/dL (7-20); CALCIUM 8.3 mg/dL (8.4-10.2); CARBON DIOXIDE 19 mmol/L (22-30); CHLORIDE 107 mmol/L (98-107); CREATININE RESULT 6.19 mg/dL (0.52-1.25); GLUCOSE 218 mg/dL (75-110); POTASSIUM 3.1 mmol/L (3.6-5.0); SODIUM 140.8 mmol/L (137-145)
[2017-09-19] MEDS: VALPROATE SODIUM SYRUP 250 MG/5 ML UDCUP PO SCH ×2 (11:19→16:40)
[2017-09-19] MEDS: MEGESTROL ACETATE 20 MG TABLET PO SCH (11:20)
--- NOTE | 2017-09-19 16:24 | PSYCHOLOGICAL NOTE ---
Psych Note - Psych Note Psych Note: Conducted check in with patient is a 67-year-old male who presented last night via [facility]'s department under an involuntary commitment petition. Patient is a resident at [facility] who petitioned the involuntary commitment due to allegedly aggressive outbursts. Patient today appears calm and stated "feel some better." He then stated to clinician that he needed a shave. Clinician spoke with attending nurse. Patient has been taking medication both in pill form and Depakene patient did attempt to refuse however attending physician ordered Ativan and once that took effect patient took medication. Patient has started eating. 298.9 (F 29) unspecified schizophrenia spectrum and other psychotic disorder Diabetes Patient is recommended to continue under involuntary commitment for further observation and stabilization. Patient is unable to return to his assisted living home and less he is taking p.o. medications as prescribed. Patient is demonstrating some improvement he has started eating and after some convincing does start to take medications. Patient is still receiving medications in multiple forms other than p.o. Patient will be reevaluated. I consulted with Dr. Guy in regards to the care management of this patient. EDTX is in agreement with disposition and recommendations.
--- NOTE | 2017-09-19 16:28 | PDOC PROGRESS REPORT ---
Subjective Progress Note for:: 09/19/17 Subjective:: Nursing states pt has allowed staff to carry out treatment care plans. Nursing states that pt took medication. Nursing yesterday reported that pt had 400 cc in bladder. Pt agreed to navarrete placement later. Physical Exam Vital Signs: Temp Pulse Resp BP Pulse Ox 99.2 F 100 17 138/82 H 100 09/18/17 21:00 09/18/17 21:00 09/18/17 21:00 09/18/17 21:00 09/18/17 21:00 General appearance: PRESENT: no acute distress, thin Head exam: PRESENT: atraumatic Eye exam: PRESENT: conjunctiva pink, EOMI, PERRLA. ABSENT: scleral icterus Ear exam: PRESENT: normal external ear exam Mouth exam: PRESENT: moist, tongue midline Neck exam: ABSENT: carotid bruit, JVD, lymphadenopathy, thyromegaly Respiratory exam: PRESENT: clear to auscultation dane. ABSENT: rales, rhonchi, wheezes Cardiovascular exam: PRESENT: RRR. ABSENT: diastolic murmur, rubs, systolic murmur Pulses: PRESENT: normal dorsalis pedis pul Vascular exam: PRESENT: normal capillary refill GI/Abdominal exam: PRESENT: normal bowel sounds, soft. ABSENT: distended, guarding, mass, organolmegaly, rebound, tenderness Rectal exam: PRESENT: deferred Extremities exam: PRESENT: full ROM. ABSENT: calf tenderness, clubbing, pedal edema Neurological exam: PRESENT: other - sleeping Psychiatric exam: PRESENT: other - sleeping Skin exam: PRESENT: dry, intact, warm. ABSENT: cyanosis, rash Results Impressions: Renal Ultrasound 09/18/17 00:00 IMPRESSION: BILATERAL RENAL CYSTS. NO HYDRONEPHROSIS. Assessment & Plan - Diagnosis (1) Schizophrenia Is this a current diagnosis for this admission?: Yes Plan: Will continue Depakote. Will add PRN Haldol with ativan. (2) Acute renal failure Qualifiers: Acute renal failure type: unspecified Qualified Code(s): N17.9 - Acute kidney failure, unspecified Is this a current diagnosis for this admission?: Yes Plan: In setting of CKD 2/3: Pt noted to have elevated Protein. Renal u/s demonstrated bilateral renal cyst. Urine culture urine culture demonstrating no growth. (3) Moderate protein-calorie malnutrition Is this a current diagnosis for this admission?: Yes Plan: Renal diet and Nephro supplemental drink. (4) Hypernatremia Is this a current diagnosis for this admission?: Yes Plan: Will continue IVF (5) Dehydration Is this a current diagnosis for this admission?: Yes Plan: Resolved. (6) Hypokalemia Is this a current diagnosis for this admission?: Yes Plan: Will check Potassium in am. Will continue IVFs. (7) Metabolic acidosis Is this a current diagnosis for this admission?: Yes Plan: Secondary to Renal disease: Will continue IVFs. (8) DVT prophylaxis Is this a current diagnosis for this admission?: Yes Plan: SCDs - Time Time Spent with patient: 15-24 minutes
[2017-09-19] MEDS: CLINDAMYCIN 600 MG/D5W RTU 600 MG/50 ML RTUPB IV SCH (21:24)
[2017-09-19] MEDS: DEXTROSE 5%-1/2 NORMAL SALINE 1,000 ML IV PRN (21:25)
[2017-09-20 05:12] LABS: ABSOLUTE EOSINOPHILS # (AUTO) 0.1 10^3/uL (0.0-0.6); ABSOLUTE MONOCYTES (AUTO) 0.6 10^3/uL (0.1-1.4); BASOPHILS % (AUTO) 0.4 % (0-2); EOSINOPHILS % (AUTO) 1.1 % (0-6); HEMATOCRIT 33.6 % (37.9-51.0); HEMOGLOBIN 11.2 g/dL (13.5-17.0); LYMPHOCYTES % (AUTO) 12.8 % (13-45); MEAN CORPUSCULAR HEMOGLOBIN 28.1 pg (27.0-33.4); MEAN CORPUSCULAR HGB CONC 33.2 g/dL (32.0-36.0); MEAN CORPUSCULAR VOLUME 85 fl (80-97); MONOCYTES % (AUTO) 8.1 % (3-13); RED BLOOD COUNT 3.97 10^6/uL (4.35-5.55); RED CELL DISTRIBUTION WIDTH 14.6 % (11.5-14.0); SEGMENTED NEUTROPHILS % (AUTO) 77.6 % (42-78); WHITE BLOOD COUNT 7.7 10^3/uL (4.0-10.5)
[2017-09-20] MEDS: CLINDAMYCIN 600 MG/D5W RTU 600 MG/50 ML RTUPB IV SCH ×3 (05:23→21:09)
[2017-09-20 05:54] LABS: ALANINE AMINOTRANSFERASE 30 U/L (21-72); ALBUMIN 3.1 g/dL (3.5-5.0); ALKALINE PHOSPHATASE 115 U/L (38-126); ANION GAP 17 (5-19); ASPARTATE AMINO TRANSFERASE 33 U/L (17-59); BILIRUBIN,DIRECT 0.4 mg/dL (0.0-0.4); BILIRUBIN,TOTAL 0.5 mg/dL (0.2-1.3); BLOOD UREA NITROGEN 54 mg/dL (7-20); CALCIUM 8.3 mg/dL (8.4-10.2); CARBON DIOXIDE 19 mmol/L (22-30); CHLORIDE 106 mmol/L (98-107); CREATININE RESULT 5.85 mg/dL (0.52-1.25); GLUCOSE 104 mg/dL (75-110); MAGNESIUM 1.8 mg/dL (1.6-2.3); POTASSIUM 3.2 mmol/L (3.6-5.0); SODIUM 142.1 mmol/L (137-145); TOTAL PROTEIN 5.8 g/dL (6.3-8.2)
[2017-09-20] MEDS: DEXTROSE 5%-1/2 NORMAL SALINE 1,000 ML IV PRN (07:35)
[2017-09-20] MEDS: MEGESTROL ACETATE 20 MG TABLET PO SCH (09:51)
[2017-09-20] MEDS: VALPROATE SODIUM SYRUP 250 MG/5 ML UDCUP PO SCH ×2 (09:51→16:28)
[2017-09-20] MEDS: LORAZEPAM INJ 2 MG/1 ML VIAL IV PRN (12:50)
--- NOTE | 2017-09-20 16:04 | PDOC PROGRESS REPORT ---
Subjective Progress Note for:: 09/20/17 Subjective:: Pt states that he is doing ok. Nursing states that pt is taking medications as directed. Nursing states that pt is doing well overall. Physical Exam Vital Signs: Temp Pulse Resp BP Pulse Ox 98.7 F 96 16 109/79 93 09/20/17 07:24 09/20/17 07:24 09/20/17 07:24 09/20/17 07:24 09/20/17 07:24 Intake & Output 09/19/17 09/20/17 09/21/17 06:59 06:59 06:59 Intake Total 2925 600 Output Total 600 Balance 2925 0 Weight 63.5 kg 63.5 kg General appearance: PRESENT: no acute distress, thin Head exam: PRESENT: atraumatic, normocephalic Eye exam: PRESENT: conjunctiva pink, EOMI. ABSENT: scleral icterus Ear exam: PRESENT: normal external ear exam Mouth exam: PRESENT: moist, tongue midline Neck exam: ABSENT: carotid bruit, JVD, lymphadenopathy, thyromegaly Respiratory exam: PRESENT: clear to auscultation dane. ABSENT: rales, rhonchi, wheezes Cardiovascular exam: PRESENT: RRR. ABSENT: diastolic murmur, rubs, systolic murmur Pulses: PRESENT: normal dorsalis pedis pul Vascular exam: PRESENT: normal capillary refill GI/Abdominal exam: PRESENT: normal bowel sounds, soft. ABSENT: distended, guarding, mass, organolmegaly, rebound, tenderness Rectal exam: PRESENT: deferred Extremities exam: PRESENT: full ROM. ABSENT: calf tenderness, clubbing, pedal edema Neurological exam: PRESENT: alert, awake, oriented to person, CN II-XII grossly intact. ABSENT: motor sensory deficit Psychiatric exam: PRESENT: appropriate affect, normal mood. ABSENT: homicidal ideation, suicidal ideation Skin exam: PRESENT: dry, intact, warm. ABSENT: cyanosis, rash Results Laboratory Results: 09/20/17 04:02 09/20/17 04:02 09/20/17 09/20/17 04:02 04:02 WBC 7.7 RBC 3.97 L Hgb 11.2 L Hct 33.6 L MCV 85 MCH 28.1 MCHC 33.2 RDW 14.6 H Plt Count 271 Seg Neutrophils % 77.6 Lymphocytes % 12.8 L Monocytes % 8.1 Eosinophils % 1.1 Basophils % 0.4 Absolute Neutrophils 6.0 Absolute Lymphocytes 1.0 Absolute Monocytes 0.6 Absolute Eosinophils 0.1 Absolute Basophils 0.0 Sodium 142.1 Potassium 3.2 L Chloride 106 Carbon Dioxide 19 L Anion Gap 17 BUN 54 H Creatinine 5.85 H Est GFR ( Amer) 12 L Est GFR (Non-Af Amer) 10 L Glucose 104 Calcium 8.3 L Magnesium 1.8 Total Bilirubin 0.5 AST 33 ALT 30 Alkaline Phosphatase 115 Total Protein 5.8 L Albumin 3.1 L Impressions: Renal Ultrasound 09/18/17 00:00 IMPRESSION: BILATERAL RENAL CYSTS. NO HYDRONEPHROSIS. Assessment & Plan - Diagnosis (1) Schizophrenia Is this a current diagnosis for this admission?: Yes Plan: Will continue Depakote. PRN Haldol with ativan. (2) Moderate protein-calorie malnutrition Is this a current diagnosis for this admission?: Yes Plan: Renal diet and Nephro supplemental drink. (3) Acute renal failure Qualifiers: Acute renal failure type: unspecified Qualified Code(s): N17.9 - Acute kidney failure, unspecified Is this a current diagnosis for this admission?: Yes Plan: In setting of CKD 2/3 Etiology Not Clear : Will check urine protein and SPEP. Pt noted to have elevated Protein. Renal u/s demonstrated bilateral renal cyst. Urine culture urine culture demonstrating no growth. (4) Aspiration into airway Is this a current diagnosis for this admission?: Yes Plan: Will check CXR and place on Clindamycin. (5) Hypernatremia Is this a current diagnosis for this admission?: Yes Plan: Resolved. (6) Dehydration Is this a current diagnosis for this admission?: Yes Plan: Resolved. (7) Hypokalemia Is this a current diagnosis for this admission?: Yes Plan: Will check Potassium in am. Will continue IVFs. (8) Metabolic acidosis Is this a current diagnosis for this admission?: Yes Plan: Secondary to Renal disease: Will continue IVFs. (9) DVT prophylaxis Is this a current diagnosis for this admission?: Yes Plan: SCDs - Time Time Spent with patient: 15-24 minutes
--- NOTE | 2017-09-20 17:39 | RADIOLOGY REPORT (SQ) ---
EXAM DESCRIPTION: CHEST SINGLE VIEW COMPLETED DATE/TIME: 09/20/2017 5:21 pm REASON FOR STUDY: Possible aspiration. COMPARISON: 02/18/2012. EXAM PARAMETERS: NUMBER OF VIEWS: One view. TECHNIQUE: Single frontal radiographic view of the chest acquired. RADIATION DOSE: NA LIMITATIONS: None. FINDINGS: LUNGS AND PLEURA: Mild interstitial prominence. Faint density in the left lung base in th e retrocardiac region. No masses or pneumothorax. No pleural effusion. MEDIASTINUM AND HILAR STRUCTURES: No masses. Contour normal. HEART AND VASCULAR STRUCTURES: Heart normal in size. Normal vasculature. BONES: No acute findings. HARDWARE: None in the chest. OTHER: No other significant finding. IMPRESSION: MILD INTERSTITIAL PROMINENCE PROBABLY CHRONIC SCARRING. FAINT DENSITY IN THE LEFT LUNG BASE COULD BE DUE TO EARLY INFILTRATE OR ATELECTASIS. TECHNICAL DOCUMENTATION: JOB ID: [id number] [employer]- All Rights Reserved
[2017-09-21] MEDS: CLINDAMYCIN 600 MG/D5W RTU 600 MG/50 ML RTUPB IV SCH ×3 (05:59→22:32)
[2017-09-21] MEDS: DEXTROSE 5%-1/2 NORMAL SALINE 1,000 ML IV PRN (06:07)
--- NOTE | 2017-09-21 10:24 | PDOC PROGRESS REPORT ---
Subjective Progress Note for:: 09/21/17 Subjective:: Pt refused labs this morning. Pt states that he had a nose bleed overnight. Physical Exam Vital Signs: Temp Pulse Resp BP Pulse Ox 99.0 F 97 18 105/57 L 90 L 09/21/17 07:18 09/21/17 07:18 09/21/17 07:18 09/21/17 07:18 09/21/17 07:18 Intake & Output 09/20/17 09/21/17 09/22/17 06:59 06:59 06:59 Intake Total 2925 3150 Output Total 600 Balance 2925 2550 Weight 63.5 kg 63.5 kg General appearance: PRESENT: no acute distress, thin Head exam: PRESENT: atraumatic, normocephalic Eye exam: PRESENT: conjunctiva pink, EOMI. ABSENT: scleral icterus Ear exam: PRESENT: normal external ear exam Mouth exam: PRESENT: moist, tongue midline Neck exam: ABSENT: carotid bruit, JVD, lymphadenopathy, thyromegaly Respiratory exam: PRESENT: clear to auscultation dane. ABSENT: rales, rhonchi, wheezes Cardiovascular exam: PRESENT: RRR. ABSENT: diastolic murmur, rubs, systolic murmur Pulses: PRESENT: normal dorsalis pedis pul Vascular exam: PRESENT: normal capillary refill GI/Abdominal exam: PRESENT: ascites Rectal exam: PRESENT: deferred Extremities exam: PRESENT: full ROM. ABSENT: calf tenderness, clubbing, pedal edema Neurological exam: PRESENT: alert, awake, oriented to person, oriented to place , CN II-XII grossly intact. ABSENT: motor sensory deficit Psychiatric exam: PRESENT: appropriate affect, normal mood. ABSENT: homicidal ideation, suicidal ideation Skin exam: PRESENT: dry, intact, warm. ABSENT: cyanosis, rash Results Laboratory Results: 09/20/17 04:02 09/20/17 04:02 09/21/17 06:00 Total Protein Cancelled Albumin Cancelled Impressions: Renal Ultrasound 09/18/17 00:00 IMPRESSION: BILATERAL RENAL CYSTS. NO HYDRONEPHROSIS. Chest X-Ray 09/20/17 00:00 IMPRESSION: MILD INTERSTITIAL PROMINENCE PROBABLY CHRONIC SCARRING. FAINT DENSITY IN THE LEFT LUNG BASE COULD BE DUE TO EARLY INFILTRATE OR ATELECTASIS. Assessment & Plan - Diagnosis (1) Schizophrenia Is this a current diagnosis for this admission?: Yes Plan: Will continue Depakote. PRN Haldol with ativan. (2) Moderate protein-calorie malnutrition Is this a current diagnosis for this admission?: Yes Plan: Renal diet and Nephro supplemental drink. (3) Acute renal failure Qualifiers: Acute renal failure type: unspecified Qualified Code(s): N17.9 - Acute kidney failure, unspecified Is this a current diagnosis for this admission?: Yes Plan: In setting of CKD 2/3 Etiology Not Clear : Pt refused labs this morning. Will check urine protein and SPEP. Pt noted to have elevated Protein. Renal u/s demonstrated bilateral renal cyst. Urine culture urine culture demonstrating no growth. Will consult renal in am. (4) Aspiration into airway Is this a current diagnosis for this admission?: Yes Plan: Clindamycin. (5) Hypernatremia Is this a current diagnosis for this admission?: Yes Plan: Resolved. (6) Dehydration Is this a current diagnosis for this admission?: Yes Plan: Resolved. (7) Hypokalemia Is this a current diagnosis for this admission?: Yes Plan: Will check Potassium in am. Will continue IVFs. (8) Metabolic acidosis Is this a current diagnosis for this admission?: Yes Plan: Secondary to Renal disease: Will continue IVFs. (9) Anterior epistaxis Is this a current diagnosis for this admission?: Yes Plan: Will write for NS and bactroban to nares to help prevent dry out of passages. (10) DVT prophylaxis Is this a current diagnosis for this admission?: Yes [place] [facility] [place]
[2017-09-21] MEDS: MEGESTROL ACETATE SUSP 400 MG/10 ML UDCUP PO SCH (10:55)
[2017-09-21] MEDS: VALPROATE SODIUM SYRUP 250 MG/5 ML UDCUP PO SCH ×2 (10:55→17:31)
[2017-09-21] MEDS: MUPIROCIN 2% OINTMENT 22 GM TP SCH (17:31)
[2017-09-22] MEDS: CLINDAMYCIN 600 MG/D5W RTU 600 MG/50 ML RTUPB IV SCH ×3 (05:57→21:05)
[2017-09-22] MEDS: LORAZEPAM INJ 2 MG/1 ML VIAL IV PRN (08:32)
[2017-09-22 10:39] LABS: ANION GAP 16 (5-19); BLOOD UREA NITROGEN 50 mg/dL (7-20); CALCIUM 7.9 mg/dL (8.4-10.2); CARBON DIOXIDE 16 mmol/L (22-30); CHLORIDE 111 mmol/L (98-107); CREATININE RESULT 5.89 mg/dL (0.52-1.25); GLUCOSE 130 mg/dL (75-110); SODIUM 142.7 mmol/L (137-145)
[2017-09-22] MEDS: MUPIROCIN 2% OINTMENT 22 GM TP SCH ×2 (11:39→17:28)
[2017-09-22] MEDS: VALPROATE SODIUM SYRUP 250 MG/5 ML UDCUP PO SCH ×2 (11:40→17:28)
[2017-09-22] MEDS: MEGESTROL ACETATE SUSP 400 MG/10 ML UDCUP PO SCH (11:40)
[2017-09-22] MEDS ORDERED: POTASSIUM CHLORIDE 20 MEQ/50 ML RTU IV ONE (12:00)
--- NOTE | 2017-09-22 17:16 | PDOC PROGRESS REPORT ---
Subjective Progress Note for:: 09/22/17 Subjective:: Pt refused labs. Nurse states that pt vomited once overnight. Physical Exam Vital Signs: Temp Pulse Resp BP Pulse Ox 98.8 F 102 H 20 129/76 H 98 09/22/17 16:00 09/22/17 16:00 09/22/17 16:00 09/22/17 16:00 09/22/17 16:00 Intake & Output 09/21/17 09/22/17 09/23/17 06:59 06:59 06:59 Intake Total 3150 3325 Output Total 600 1400 Balance 2550 1925 Weight 63.5 kg General appearance: PRESENT: cooperative, thin Head exam: PRESENT: atraumatic, normocephalic Eye exam: PRESENT: conjunctiva pink, EOMI, PERRLA. ABSENT: scleral icterus Ear exam: PRESENT: normal external ear exam Mouth exam: PRESENT: moist, tongue midline Neck exam: ABSENT: carotid bruit, JVD, lymphadenopathy, thyromegaly Respiratory exam: PRESENT: clear to auscultation dane. ABSENT: rales, rhonchi, wheezes Cardiovascular exam: PRESENT: RRR. ABSENT: diastolic murmur, rubs, systolic murmur Pulses: PRESENT: normal dorsalis pedis pul Vascular exam: PRESENT: normal capillary refill GI/Abdominal exam: PRESENT: normal bowel sounds, soft. ABSENT: distended, guarding, mass, organolmegaly, rebound, tenderness Rectal exam: PRESENT: deferred Extremities exam: PRESENT: full ROM. ABSENT: calf tenderness, clubbing, pedal edema Neurological exam: PRESENT: alert, awake, oriented to person, CN II-XII grossly intact. ABSENT: motor sensory deficit Psychiatric exam: PRESENT: agitated Skin exam: PRESENT: dry, intact, warm. ABSENT: cyanosis, rash Results Laboratory Results: 09/20/17 04:02 09/22/17 10:03 09/22/17 10:03 Sodium 142.7 Potassium 3.0 L* Chloride 111 H Carbon Dioxide 16 L Anion Gap 16 BUN 50 H Creatinine 5.89 H Est GFR ( Amer) 12 L Est GFR (Non-Af Amer) 10 L Glucose 130 H Calcium 7.9 L Impressions: Renal Ultrasound 09/18/17 00:00 IMPRESSION: BILATERAL RENAL CYSTS. NO HYDRONEPHROSIS. Chest X-Ray 09/20/17 00:00 IMPRESSION: MILD INTERSTITIAL PROMINENCE PROBABLY CHRONIC SCARRING. FAINT DENSITY IN THE LEFT LUNG BASE COULD BE DUE TO EARLY INFILTRATE OR ATELECTASIS. Assessment & Plan - Diagnosis (1) Schizophrenia Is this a current diagnosis for this admission?: Yes Plan: Will continue Depakote. PRN Haldol with ativan. (2) Moderate protein-calorie malnutrition Is this a current diagnosis for this admission?: Yes Plan: Renal diet and Nephro supplemental drink. (3) Acute renal failure Qualifiers: Acute renal failure type: unspecified Qualified Code(s): N17.9 - Acute kidney failure, unspecified Is this a current diagnosis for this admission?: Yes Plan: In setting of CKD 2/3 Etiology Not Clear : Pt refused labs this morning. Will check urine protein and SPEP. Pt noted to have elevated Protein. Renal u/s demonstrated bilateral renal cyst. Urine culture demonstrating no growth. Pt will need to be seen by Renal. This is most likely pt's baseline but etiology not clear. (4) Aspiration into airway Is this a current diagnosis for this admission?: Yes Plan: Clindamycin. (5) Hypernatremia Is this a current diagnosis for this admission?: Yes Plan: Resolved. (6) Dehydration Is this a current diagnosis for this admission?: Yes Plan: Resolved. (7) Hypokalemia Is this a current diagnosis for this admission?: Yes Plan: Will give 20 MEQ of Potassium. Will continue IVFs. (8) Metabolic acidosis Is this a current diagnosis for this admission?: Yes Plan: Secondary to Renal disease: Will continue IVFs. (9) Anterior epistaxis Is this a current diagnosis for this admission?: Yes Plan: Will write for NS and bactroban to nares to help prevent dry out of passages. (10) DVT prophylaxis Is this a current diagnosis for this admission?: Yes Plan: SCDs - Time Time Spent with patient: Less than 15 minutes
[2017-09-23] MEDS: CLINDAMYCIN 600 MG/D5W RTU 600 MG/50 ML RTUPB IV SCH ×3 (05:19→21:56)
[2017-09-23] MEDS ORDERED: SODIUM BICARBONATE 650 MG TABLET PO ONE (08:30)
[2017-09-23] MEDS ORDERED: POTASSIUM CHLORIDE 10 MEQ TABLET.SA PO ONE (09:00)
[2017-09-23] MEDS: MEGESTROL ACETATE SUSP 400 MG/10 ML UDCUP PO SCH (09:55)
[2017-09-23] MEDS: MUPIROCIN 2% OINTMENT 22 GM TP SCH ×2 (09:55→18:25)
[2017-09-23] MEDS: VALPROATE SODIUM SYRUP 250 MG/5 ML UDCUP PO SCH (09:55)
[2017-09-23] MEDS ORDERED: DEXTROSE 5%-WATER 1000 ML 1,000 ML with SODIUM BICARBONATE 100 MEQ IV PRN ×2 (10:02)
[2017-09-23] MEDS: DEXTROSE 5%-1/2 NORMAL SALINE 1,000 ML IV PRN (10:20)
[2017-09-23] MEDS: POTASSI CL 20 MEQ/50 ML RIDER 20 MEQ/50 ML RTUPB IV SCH ×2 (10:34→12:53)
[2017-09-23] MEDS ORDERED: NORMAL SALINE 1000 ML 1,000 ML IV PRN (14:56)
[2017-09-23] MEDS: DIVALPROEX SODIUM 125 MG CAP.SPRINK PO SCH (18:25)
[2017-09-23] MEDS: LORAZEPAM INJ 2 MG/1 ML VIAL IV PRN (21:58)
[2017-09-23] MEDS ORDERED: SODIUM BICARBONATE 650 MG TABLET PO SCH (22:00)
[2017-09-24 00:12] VITALS: BP 151/82
[2017-09-24 03:19] LABS: URINE CREATININE 84.1 mg/dL (22-328)
[2017-09-24 03:26] LABS: URINE PROTEIN 257.1 mg/dL (<12)
[2017-09-24] MEDS: CLINDAMYCIN 600 MG/D5W RTU 600 MG/50 ML RTUPB IV SCH (05:16)
[2017-09-24] MEDS: LORAZEPAM INJ 2 MG/1 ML VIAL IV PRN (09:18)
[2017-09-24] MEDS: MUPIROCIN 2% OINTMENT 22 GM TP SCH (09:19)
[2017-09-24] MEDS ORDERED: POTASSIUM CHLORIDE 10 MEQ TABLET.SA PO SCH (10:00)
[2017-09-24] MEDS: DIVALPROEX SODIUM 125 MG CAP.SPRINK PO SCH (10:13)
[2017-09-24] MEDS: MEGESTROL ACETATE SUSP 400 MG/10 ML UDCUP PO SCH (10:13)
[2017-09-24] MEDS ORDERED: CALCIUM GLUCONATE 1000 MG/10 ML INJ IV ONE (13:43)
--- NOTE | 2017-09-24 15:38 | PDOC CONSULTATION ---
Consultation Consult Date: 09/23/17 Consult reason:: RORY in CKD History of Present Illness Admission Date/PCP: 09/19/17 13:00 History of Present Illness: JYOTSNA CAMACHO is a 67 year old male presented with complaint of aggressive behavior toward staff. He has schizophrenia. Pt was found to have a cr 5.87. He is currently lying in bed. He answers well to questions at the moment, but does not remeber any details. However he can go off on a tangent and has thought disorders. He refuses to take any meds PO. He states he is fine . Pt states that he does not want me to do anything for him. He denies any chest pains, dyspnea.As per discussions done with RN, he can become very belligerent and non coperative. Past Medical History Cardiac Medical History: Reports: Hyperlipidemia, Hypertension-primary Denies: Coronary Artery Disease, Myocardial Infarction Pulmonary Medical History: Reports: Pneumonia - 5 YEARS AGO Denies: Asthma, Chronic Obstructive Pulmonary Disease (COPD) Neurological Medical History: Denies: Seizures Endocrine Medical History: Reports: Diabetes Mellitus Type 2 Renal/ Medical History: Reports: Chronic Kidney Disease Stage III Musculoskeltal Medical History: Denies: Arthritis Psychiatric Medical History: Reports: Depression Psychiatric History Note: Schizophrenia Past Surgical History Past Surgical History: Reports: Orthopedic Surgery - left foot Denies: Pacemaker Social History Lives with: Detention Smoking Status: Former Smoker Cigarettes Packs Per Day: 1 Cigars Per Day: 0 Pipes Per Day: 0 Number of Years Smokin Last Time Smoked: 11/03/2011 Frequency of Alcohol Use: None Hx Recreational Drug Use: No Hx Prescription Drug Abuse: No Family History Parental Family History Reviewed: No Children Family History Reviewed: No Sibling(s) Family History Reviewed.: No Medication/Allergy Home Medications: Acetaminophen [Acetaminophen Extra Strength] 500 mg PO Q8HP PRN 09/16/17 Amlodipine Besylate 5 mg PO DAILY 09/16/17 Atenolol/Chlorthalidone [Atenolol-Chlorthalidone 100-25] 1 tab PO DAILY Bismuth Subsalicylate [[place] Bismuth] 30 ml PO Q4HP PRN 09/16/17 Glipizide [Glipizide ER] 10 mg PO BID 09/16/17 Haloperidol 20 mg PO QHS 09/16/17 Losartan Potassium 100 mg PO DAILY 09/16/17 Mag Hydrox/Aluminum Hyd/Simeth [Antacid Anti-Gas Liquid] 15 ml PO Q4HP PRN 09/16 Simvastatin 10 mg PO QPM 09/16/17 Allergies/Adverse Reactions: aspirin [Aspirin] Allergy (Mild, Verified 09/18/17 13:06) Penicillins Allergy (Mild, Verified 09/18/17 13:06) Carbapenems Allergy (Verified 09/18/17 14:50) Cephalosporins Allergy (Verified 09/18/17 14:46) Review of Systems Constitutional: ABSENT: fever(s), headache(s), weakness Nose, Mouth, and Throat: ABSENT: mouth pain, sore throat Cardiovascular: ABSENT: dyspnea on exertion, edema, orthropnea, palpitations Respiratory: ABSENT: hemoptysis Gastrointestinal: ABSENT: abdominal pain, bloating, diarrhea, dysphagia, heartburn, hematochezia, melena, nausea, vomiting Genitourinary: ABSENT: dysuria, hematuria Integumentary: ABSENT: pruritus Physical Exam Vital Signs: Temp Pulse Resp BP Pulse Ox 99.0 F 102 H 20 153/86 H 92 09/23/17 07:17 09/23/17 07:17 09/23/17 07:17 09/23/17 07:17 09/23/17 07:17 Intake & Output 09/22/17 09/23/17 09/24/17 06:59 06:59 06:59 Intake Total 3325 4591 Output Total 1400 1150 Balance 1925 3441 Weight 66.6 kg General appearance: PRESENT: no acute distress Eye exam: PRESENT: conjunctiva pink, EOMI, PERRLA. ABSENT: nystagmus Ear exam: PRESENT: normal external ear exam Mouth exam: PRESENT: neck supple. ABSENT: moist Neck exam: ABSENT: lymphadenopathy, meningismus, tenderness, thyromegaly, tracheal deviation Respiratory exam: PRESENT: clear to auscultation dane, crackles - coarse and in both infr axillary areas, symmetrical, unlabored Cardiovascular exam: PRESENT: +S1, +S2, systolic murmur GI/Abdominal exam: PRESENT: normal bowel sounds, soft. ABSENT: distended, organomegaly, tenderness Extremities exam: ABSENT: pedal edema Neurological exam: PRESENT: alert, awake. ABSENT: oriented to person, oriented to place, oriented to time Skin exam: PRESENT: dry. ABSENT: mottled Results Laboratory Results: 09/20/17 04:02 09/22/17 10:03 Impressions: Renal Ultrasound 09/18/17 00:00 IMPRESSION: BILATERAL RENAL CYSTS. NO HYDRONEPHROSIS. Chest X-Ray 09/20/17 00:00 IMPRESSION: MILD INTERSTITIAL PROMINENCE PROBABLY CHRONIC SCARRING. FAINT DENSITY IN THE LEFT LUNG BASE COULD BE DUE TO EARLY INFILTRATE OR ATELECTASIS. Assessment & Plan - Diagnosis (1) Acute renal failure Qualifiers: Acute renal failure type: unspecified Qualified Code(s): N17.9 - Acute kidney failure, unspecified Is this a current diagnosis for this admission?: Yes Plan: Clinically dry.Start ns for current fluids.Renal US is unremarkable. BAse creatinine is around 2.0. (2) Dehydration Is this a current diagnosis for this admission?: Yes Plan: As mentioned earlier.Monitor. (3) Hypokalemia Is this a current diagnosis for this admission?: Yes Plan: Plan IV replacements. (4) Metabolic acidosis Is this a current diagnosis for this admission?: Yes Plan: See correction with proper ivf. recommend po bicarb but MELANIE robledo does not take any po meds. (5) Pulmonary fibrosis Plan: As per clinical eval and corroborated by radiology.
[2017-09-24] MEDS ORDERED: EPINEPHRINE INJ 1 MG/10 ML DISP.SYRIN ONE (15:39)
[2017-09-24] MEDS ORDERED: SODIUM BICARBONATE 8.4% INJ 50 MEQ/50 ML DISP.SYRIN ONE (15:39)
--- NOTE | 2017-09-25 06:39 | PDOC PROGRESS REPORT ---
Subjective Progress Note for:: 09/23/17 Subjective:: Patient still refusing labs. Patient still not eating very much. Patient will sometimes take his medications. Physical Exam Vital Signs: Temp Pulse Resp BP Pulse Ox 99.0 F 102 H 20 153/86 H 92 09/23/17 07:17 09/23/17 07:17 09/23/17 07:17 09/23/17 07:17 09/23/17 07:17 Intake & Output 09/22/17 09/23/17 09/24/17 06:59 06:59 06:59 Intake Total 3325 4591 533 Output Total 1400 1150 350 Balance 1925 3441 183 Weight 66.6 kg General appearance: PRESENT: no acute distress, thin Head exam: PRESENT: atraumatic, normocephalic Eye exam: PRESENT: EOMI. ABSENT: scleral icterus Ear exam: PRESENT: normal external ear exam Mouth exam: PRESENT: moist Neck exam: ABSENT: carotid bruit, JVD, lymphadenopathy, thyromegaly Respiratory exam: PRESENT: clear to auscultation dane. ABSENT: rales, rhonchi, wheezes Cardiovascular exam: PRESENT: RRR. ABSENT: diastolic murmur, rubs, systolic murmur Pulses: PRESENT: normal dorsalis pedis pul Vascular exam: PRESENT: normal capillary refill GI/Abdominal exam: PRESENT: normal bowel sounds, soft. ABSENT: distended, guarding, mass, organolmegaly, rebound, tenderness Rectal exam: PRESENT: deferred Gentrourinary exam: PRESENT: indwelling catheter Extremities exam: PRESENT: full ROM. ABSENT: calf tenderness, clubbing, pedal edema Neurological exam: PRESENT: alert, awake, oriented to person, oriented to place , oriented to time, oriented to situation, CN II-XII grossly intact. ABSENT: motor sensory deficit Psychiatric exam: PRESENT: depressed. ABSENT: homicidal ideation, suicidal ideation Focused psych exam: PRESENT: flight of ideas Skin exam: PRESENT: dry, intact, warm. ABSENT: cyanosis, rash Results Laboratory Results: 09/20/17 04:02 09/22/17 10:03 Impressions: Renal Ultrasound 09/18/17 00:00 IMPRESSION: BILATERAL RENAL CYSTS. NO HYDRONEPHROSIS. Chest X-Ray 09/20/17 00:00 IMPRESSION: MILD INTERSTITIAL PROMINENCE PROBABLY CHRONIC SCARRING. FAINT DENSITY IN THE LEFT LUNG BASE COULD BE DUE TO EARLY INFILTRATE OR ATELECTASIS. Assessment & Plan - Diagnosis (1) Acute renal failure Qualifiers: Acute renal failure type: unspecified Qualified Code(s): N17.9 - Acute kidney failure, unspecified Is this a current diagnosis for this admission?: Yes Plan: This appears more chronic in nature. Will consult nephrology to evaluate patient. Renal failure workup was initiated by previous provider however patient has been refusing labs. She does have a Rivas in place. Patient appears to have adequate urinary output despite his BUN and creatinine being elevated. (2) Anterior epistaxis Is this a current diagnosis for this admission?: Yes Plan: Continue the use of Bactroban in the nares. Patient does not appear to have any active bleeding. (3) DVT prophylaxis Is this a current diagnosis for this admission?: Yes Plan: Continue SCDs. (4) Aspiration into airway Is this a current diagnosis for this admission?: Yes Plan: Continue treatment with clindamycin. (5) Hypernatremia Is this a current diagnosis for this admission?: Yes Plan: Most likely secondary to dehydration now resolved. (6) Hypokalemia Is this a current diagnosis for this admission?: Yes Plan: Patient potassium was 3.0. Patient was given 20 mEq however has since refused to have repeat labs. Will give 20mEq more of potassium since patient is having adequate urine output. Will try to encourage patient to have his labs drawn. (7) Metabolic acidosis Is this a current diagnosis for this admission?: Yes Plan: Start patient on a bicarb drip. Patient is received refusing to take sodium bicarb orally. (8) Moderate protein-calorie malnutrition Is this a current diagnosis for this admission?: Yes Plan: Patient started on dietary supplement. Patient still not eating very much. (9) Schizophrenia Is this a current diagnosis for this admission?: Yes Plan: Patient is on Depakote. This was transitioned to Depakote sprinkles to see if patient will take this for more ease. As needed Ativan and Haldol is being used for agitation. This is not being given very often. - Time Time Spent with patient: Less than 15 minutes Anticipated discharge: SNF Within: Other - Facility uncertain if they will be able to accept the patient back. Discharge planning is assisting with placement of the patient.
--- NOTE | 2017-09-25 10:26 | Death Summary ---
Summary Date : 09/24/17 Time of :: 13:51 Autopsy: No Resuscitation Status: Full Code Consulting Provider: Dr. Holly Castorena - Final Diagnosis (1) Acute renal failure Is this a current diagnosis for this admission?: Yes (2) Anterior epistaxis Is this a current diagnosis for this admission?: Yes (3) DVT prophylaxis Is this a current diagnosis for this admission?: Yes (4) Aspiration into airway Is this a current diagnosis for this admission?: Yes (5) Hypernatremia Is this a current diagnosis for this admission?: Yes (6) Hypokalemia Is this a current diagnosis for this admission?: Yes (7) Metabolic acidosis Is this a current diagnosis for this admission?: Yes (8) Moderate protein-calorie malnutrition Is this a current diagnosis for this admission?: Yes (9) Schizophrenia Is this a current diagnosis for this admission?: Yes Hospital Course:: Patient is a 67-year-old male with a history of schizophrenia who was living at [facility]. Patient was brought to [facility] with complaint of aggressive behavior. Presentation patient was already refusing care stating he just wanted to go home. Patient initially had a potassium of 3.2 a BUN of 58 and a creatinine of 6.25 GFR was 11. Patient had no complaints other than feeling nauseated. Patient was started on D5 half-normal saline. Patient renal function started to improve. Patient was hypokalemic. Patient was given replacement however despite receiving replacement patient potassium was still low. Patient was refusing lab checks therefore we were unable to see if there was any improvement. Patient refused to have the leads placed on for telemetry. As per the nurse he entered the room to hang his antibiotic and patient was unresponsive and pulseless. ACLS was called. Staff responded. Patient received 4 rounds of epi and chest compressions. Patient still remained pulseless. Code was called at 13:51. He was in asystole. Being that patient has a history of hypertension, hyperlipidemia, diabetes, and end-stage renal disease, it was thought that patient may have had a massive myocardial infarction. Patient sister showed up shortly after she was made aware of what had happened. She was upset and crying but stated that she felt that this was coming soon as he was not taking his medication and not eating at times. Also patient had been refusing care.
== END 2017-09-24 13:51 | DRG 682 ==
LOC: ER 21:32 → EH 09-18 11:31 → INTOOBSV 09-18 11:31 → 5 09-18 12:25 → OBSVTOIN 09-19 13:00
PROVIDERS: ADMIT Emergency Medicine; ATTEND Emergency Medicine
DX: N17.9 Acute kidney failure, unspecified (principal); I21.9 Acute myocardial infarction, unspecified; E87.0 Hyperosmolality and hypernatremia; E87.2 Acidosis; E44.0 Moderate protein-calorie malnutrition; Z68.1 Body mass index [BMI] 19.9 or less, adult; Q61.02 Congenital multiple renal cysts; R04.0 Epistaxis; Z53.29 Procedure and treatment not carried out because of patient's decision for other reasons; E87.6 Hypokalemia; F20.9 Schizophrenia, unspecified; E11.22 Type 2 diabetes mellitus with diabetic chronic kidney disease; Z91.14 Patient's other noncompliance with medication regimen; I12.9 Hypertensive chronic kidney disease with stage 1 through stage 4 chronic kidney disease, or unspecified chronic kidney disease; N18.3 Chronic kidney disease, stage 3 (moderate); F32.9 Major depressive disorder, single episode, unspecified; E86.0 Dehydration; J84.10 Pulmonary fibrosis, unspecified; E78.5 Hyperlipidemia, unspecified; R45.1 Restlessness and agitation; Z87.891 Personal history of nicotine dependence; Z79.899 Other long term (current) drug therapy; Z88.6 Allergy status to analgesic agent; Z88.0 Allergy status to penicillin; Z88.8 Allergy status to other drugs, medicaments and biological substances; Z83.3 Family history of diabetes mellitus
CPT/HCPCS: 36415; 71010; 76770; 80048; 80053; 80307; 81001; 82570; 83036; 83735; 84156; 84300; 84439; 85025; 87086; 93005; 93010; 96372; 99285; G0378; G8978-GP; G8979-GP; G8987-GO; G8988-GO; J0171; J1630; J1815; J2060; J3480; J3490; J7030